=== PATIENT | female | born 1990 | race Caucasian/White ===

== ENCOUNTER 2016-11-04 20:01 | Day surgery (SDC) | payer BC, OTHER ==
[2016-11-04 20:35] VITALS: BMI 26.4
[2016-11-04 21:04] LABS: Bilirubin Negative (Negative); Blood, Urine Negative (Negative); Glucose, Urine (Dipstick) Negative (Negative); Ketone, Urine Negative (Negative); Nitrite Negative (Negative); Protein, Urine (Dipstick) Negative (Neg-Trace)
[2016-11-04 21:06] LABS: Bacteria/HPF None Seen HPF (None Seen); Hyaline Casts/LPF 0-3 HYALINE CAST LPF (0-3 Hyaline); RBC/HPF 0-3 HPF (0-3); WBC/HPF 0-3 HPF (0-3)
--- NOTE | 2016-11-05 00:59 | PRG ---
DATE OF SERVICE: 11/04/2016 TIME: 2100 Hours. LOCATION: Labor and Delivery Triage. This is a patient of Dr. Storm. REASON FOR EVALUATION: Suspected lower pelvic cramping. HISTORY OF PRESENT ILLNESS: This in brief, this is a 26-year-old 2, para 1 with a due date of 12/10/2016, puts her at 34 weeks and [address] Storm for this gestation. S he complains of lower right quadrant spasm and colicky pain, but denies dysuria, fever, vaginal blee ding, or ruptured membranes. She has good movement. Her pain was rated as 1/10. She called the office and spoke to the nurse line which suggested the pain may be compatible with sciatica. Sh e denies fevers or recent trauma. She comes into Labor and Delivery for evaluation. REVIEW OF SYSTEMS: Complete review of systems was checked and is otherwise negative other than spec ified in the HPI. Of note, is that she does have a history of sciatica with this . She al so has a history of recurrent UTIs, which have been treated and had a history of a vaginal yeast inf ection, not too long ago. PAST MEDICAL HISTORY: Otherwise, negative. OBSTETRIC HISTORY: Significant for a vaginal x1. ALLERGIES: None. MEDICATIONS: vitamins. SURGERIES: Include wisdom teeth and ear drums as a child. OB HISTORY: She has had a prior vaginal and for this , she had a history of a low ly ing placenta, but that resolved with her last ultrasound. FAMILY HISTORY: otherwise negative. SOCIAL HISTORY: Negative for alcohol, tobacco or drug use. PHYSICAL EXAMINATION: VITAL SIGNS: She is afebrile with a temperature of 98.4, pulse is 91. Blood pressure is 128/74. R espirations are 18-20 and unlabored. GENERAL: Clinically, she is in no acute distress and resting well. ABDOMEN: Soft and nontender. It is size consistent with dates. There is no evidence of vaginal bl eeding or rupture of membranes on inspection. PELVIC: On cervical examination, she is 1 cm dilated, 30% effaced and high station. NONSTRESS TEST: Nonstress test was ordered due to 34 weeks gestation and \\\\"pelvic discomfort.\\\\" Nonstress test shows heart rate of 130s to 140s at a category 1. Moderate variability and disha ar accelerations were noted. There are no decelerations. Contractions are few to rare. hear t tones are reassuring. LABORATORY ASSESSMENT: I have ordered a clean catch UA, which has returned with trace leukocyte est erase, but no bacteria seen. There are few squamous cells as well. This was a clean catch, not cat heterized. We are awaiting a [employer] [employer] [facility]ENT-3. ASSESSMENT: This is a 26-year-old at 34 weeks and 6 days with discomforts of pregna ncy/round ligament pain. There is no evidence of labor or external compromise at this time. PLAN: 1. UA is unremarkable. 2. Await [employer] SERVICES AGENT-3. 3. I anticipate discharge home after [employer] SERVICES [facility]ENT-3 to have her follow up with her private practitioner.
== END 2016-11-04 22:19 | disposition home or self-care (01) ==
LOC: L&D/OP 20:01
PROVIDERS: ATTEND Obstetrics & Gynecology
DX: O99.89 Other specified diseases and conditions complicating pregnancy, childbirth and the puerperium (principal); R10.2 Pelvic and perineal pain; Z79.899 Other long term (current) drug therapy; Z98.818 Other dental procedure status; Z98.890 Other specified postprocedural states; Z3A.34 34 weeks gestation of pregnancy
CPT/HCPCS: 81003; 81015; 87480; 87510; 87660

== ENCOUNTER 2016-12-08 05:30 | Inpatient (IN) | payer BC, OTHER ==
[2016-12-08 06:21] VITALS: BMI 27.8
[2016-12-08] MEDS: Lactated Ringer's 1,000 ML IV SCH ×2 (06:50→08:55)
[2016-12-08] MEDS ORDERED: LR 500 ML/Oxytocin 10 units 500 ML ONE (06:59)
[2016-12-08] MEDS ORDERED: LR / Pitocin 40 units/1000 ml 1,000 ML IV PRN (07:02)
[2016-12-08] MEDS ORDERED: Docusate 100 MG CAP PO PRN (07:02)
[2016-12-08] MEDS ORDERED: Promethazine HCl 25 MG/ML VIAL IM PRN ×2 (07:02→09:10)
[2016-12-08] MEDS ORDERED: Penicillin G Potassium 5 MILL.UNITS in Sodium Chloride 0.9% 100 ML IVPB SCH (07:02)
[2016-12-08] MEDS ORDERED: Ibuprofen 800 MG TAB PO PRN (07:02)
[2016-12-08] MEDS ORDERED: LR 500 ML/Oxytocin 10 units 500 ML IV SCH ×2 (07:02)
[2016-12-08] MEDS ORDERED: Ondansetron HCl/PF 4 MG/2 ML Vial IVP PRN ×3 (07:02→19:49)
[2016-12-08] MEDS ORDERED: Acetaminophen/Codeine 30-300mg Tablet PO PRN ×3 (07:02→19:49)
[2016-12-08] MEDS ORDERED: Lidocaine 1% (PF) 30 ML VIAL SC PRN (07:02)
[2016-12-08 07:15] LABS: Hematocrit 37.7 % (36.0-47.0); Mean Platelet Volume 7.9 fL (7.4-10.4); Red Blood Cell (RBC) Count 3.88 mill/uL (4.20-5.40); White Blood Cell (WBC) Count 9.6 thou/uL (4.8-10.8)
[2016-12-08] MEDS ORDERED: Fentanyl 4 mcg/Marc 0.1% Cadd 100 ML ONE (08:08)
--- NOTE | 2016-12-08 08:32 | PDOC.LDHP ---
Labor and Delivery H&P Chief complaint: scheduled induction HPI: Pt is a 26yo @ 39.5 weeks here for desired IOL. Current gestational age (weeks): 39 Due date: 12/10/16 Dating criteria: last menstrual period, first trimester ultrasound Grav: 2 Para: 1 OB History Details: x 1 Current complications: none Abnormal US findings: Yes (low lying placenta early , resolved) Current medications: pre-alec vitamins Previous surgical history: none Allergies/Adverse Reactions: Allergies Allergy/AdvReac Type Severity Reaction Status Date / Time No Known Allergies Allergy Verified 11/04/16 20:27 Social history: none - Physical Exam Vital signs reviewed and normal: yes General: NAD, resting Lungs: nonlabored breathing Abdomen: gravid Extremeties: no edema FHT: category 1 - Vaginal Exam cm dilated: 2 Effacement: 75% Station: -2 - OB Labs Blood type: A RH: negative Antibody Screen: negative HIV: negative RPR: negative HEPSAg: negative 1 hour GCT: negative GBS: negative Urine drug screen: not done Rubella: immune - Assessment L&D Assessment: elective induction at term - Plan Plan: admit to L&D, cervical ripening, labor augmentation if indicated, informed consent obtained, anesthesia consult for pain management
--- NOTE | 2016-12-08 08:33 | PDOC.LDPN ---
Labor & Delivery Progress Note - Subjective Subjective: comfortable - Objective Vital signs reviewed and normal: yes AROM: clear fluid (little to scant fluid at AROM) - Assessment (1) 39 weeks gestation of Code(s): Z3A.39 - 39 WEEKS GESTATION OF Current Visit: Yes Status : Acute
[2016-12-08] MEDS ORDERED: ePHEDrine/0.9% NaCl/PF SYRINGE 50 mg/10 ml SLOW IVP PRN (09:10)
[2016-12-08] MEDS ORDERED: Eucerin (Mineral Oil/Petrolatum,White) 30 gm Jar TOP PRN (09:10)
[2016-12-08] MEDS ORDERED: Lactated Ringer's 500 ML IV PRN (09:10)
[2016-12-08] MEDS ORDERED: Acetaminophen 325 MG TAB PO PRN (09:10)
[2016-12-08] MEDS ORDERED: Naloxone HCl 0.4 mg/ml Vial IVP PRN ×2 (09:10)
[2016-12-08] MEDS ORDERED: Communication Order-Pharmacy FS SCH (09:15)
[2016-12-08] MEDS ORDERED: Fentanyl 4mcg/Marcaine 0.1% Cassette 100 ML EPIDURAL SCH (09:15)
[2016-12-08] MEDS ORDERED: Penicillin G 2.5 MILL.units 2.5 MILL.UNITS in Premix Bag 1 BAG IVPB SCH (11:00)
[2016-12-08] MEDS: diphenhydrAMINE 50 MG/ML VIAL IVP PRN ×2 (11:19→15:09)
--- NOTE | 2016-12-08 13:06 | PDOC.LDPN ---
Labor & Delivery Progress Note - Subjective Subjective: comfortable - Objective Vital signs reviewed and normal: yes General: resting Dilation: 4-5 Effacement: 50% Station: -1 FHT: category 1 Mangum contractions every: 3 - Assessment (1) 39 weeks gestation of Code(s): Z3A.39 - 39 WEEKS GESTATION OF Current Visit: Yes Status : Acute Plan: continue plan of care, pitocin for augmentation
--- NOTE | 2016-12-08 17:07 | PDOC.OPDEL ---
OB Operative/Delivery Note Delivery Dr/Surgeon: Emeterio Pre-Delivery Diagnosis: elective induction Procedure/Post Delivery Dx: spontaneous vaginal delivery Weeks gestation: 39 - Findings A Sex: female - 1 min: 9 - 5 min: 9 - Additional Findings/Plan Placenta delivered: spontaneous Repaired Obstetrical Laceration: 2nd degree Estimated blood loss: 300ml Post delivery plan: routine recovery
[2016-12-08] MEDS ORDERED: Lanolin Ointment 7 GM TUBE TOP PRN (19:49)
[2016-12-08] MEDS ORDERED: LR / Pitocin 40 units/1000 ml 1,000 ML IV SCH (19:49)
[2016-12-08] MEDS ORDERED: Bisacodyl 10 MG SUPP PR PRN (19:49)
[2016-12-08] MEDS ORDERED: Milk Of Magnesia 30 ML UDCUP PO PRN (19:49)
[2016-12-08] MEDS ORDERED: Benzocaine/Menthol 20-0.5% 60 ML CAN TOP PRN (19:49)
[2016-12-08] MEDS: Ibuprofen 800 MG TAB PO SCH (20:56)
[2016-12-08] MEDS: Docusate (Surfak) 240 MG CAP PO SCH (20:56)
[2016-12-08] MEDS ORDERED: Adacel (T-DAP) 0.5 ML VIAL IM ONE (21:00)
[2016-12-08] MEDS ORDERED: Bupivacaine 0.25% HCL 30 ML VIAL ONE (22:17)
[2016-12-09] MEDS: Acetaminophen/Codeine 30-300mg Tablet PO PRN ×2 (01:42→13:21)
[2016-12-09] MEDS: Ibuprofen 800 MG TAB PO SCH ×2 (04:57→12:03)
[2016-12-09] MEDS ORDERED: Prenatal Vitamin 1 TAB PO SCH (09:00)
[2016-12-09] MEDS: Ferrous Sulfate 325 MG TAB PO SCH ×2 (10:11→18:36)
[2016-12-09] MEDS: Docusate (Surfak) 240 MG CAP PO SCH (10:11)
--- NOTE | 2016-12-09 11:45 | PDOC.PP ---
Post Progress Note Post Day #: 1 Subjective: no concerns PO intake tolerated: yes Flatus: yes Ambulation: yes Vital Signs (12 hours) Temp Pulse Resp BP 12/09/16 04:00 97.8 F 77 18 143/75 H 12/09/16 02:28 98.0 F 71 18 123/67 Weight Weight 183 lb - Physical Examination General: NAD Respiratory: non-labored breathing Extremities: negative homans (B) Skin: no rash Neurological: no gross focal deficits Psychiatric: A&Ox3, normal affect Result Diagrams: 12/08/16 06:50 Additional Labs: Post Labs Blood Type A NEGATIVE 12/08/16 06:50 Hep Bs Antigen Non-Reactive S/CO (NonReactive) 12/08/16 06:50 (1) 39 weeks gestation of Code(s): Z3A.39 - 39 WEEKS GESTATION OF Status: Acute (2) Spontaneous vaginal delivery Code(s): O80 - ENCOUNTER FOR FULL-TERM UNCOMPLICATED DELIVERY Status: Acute - Assessment/Plan PPD 1 desires DC home today if possible.
[2016-12-09 18:10] VITALS: BP 128/73; TEMP 98.1
== END 2016-12-09 19:00 | disposition home or self-care (01) | DRG 775 ==
LOC: L&D 05:52 → 3SW 20:06
PROVIDERS: ADMIT Obstetrics & Gynecology; ATTEND Obstetrics & Gynecology
PROC: 10E0XZZ Delivery of Products of Conception, External Approach (ICD-10-PCS; principal; 2016-12-08)
PROC: 0KQM0ZZ Repair Perineum Muscle, Open Approach (ICD-10-PCS; 2016-12-08)
PROC: 10907ZC Drainage of Amniotic Fluid, Therapeutic from Products of Conception, Via Natural or Artificial Opening (ICD-10-PCS; 2016-12-08)
PROC: 3E0P3VZ Introduction of Hormone into Female Reproductive, Percutaneous Approach (ICD-10-PCS; 2016-12-08)
DX: O76 Abnormality in fetal heart rate and rhythm complicating labor and delivery (principal); O70.1 Second degree perineal laceration during delivery; Z37.0 Single live birth; Z3A.39 39 weeks gestation of pregnancy; Z31.82 Encounter for Rh incompatibility status
CPT/HCPCS: 85027; 86850; 86900; 86901; 87340; J1200; J7120; S0020